=== PATIENT | female | born 1985 | race Caucasian/White ===

== ENCOUNTER 2017-03-02 18:14 | Emergency (ER) | payer OTHER ==
[~2017-03-02] VITALS: Ht 162.6 cm; Wt 68.2 kg
[~2017-03-02 18:14] MED LIST: CELE20TA AD; CELE40TA PO; FURO20TA2 PO; IBUP200C10 PO; LORA2TA PO; MELO15TA3 PO; MOBI15TA PO; TRAZ100T2 PO; TYLE167L PO; VENL37TA PO; XANA1TAB2 PO
[2017-03-02] MEDS ORDERED: METH5TA PO (18:25)
[2017-03-02 19:01] VITALS: BP 109/54
[2017-03-02] MEDS ORDERED: NS 1,000 ML IV SCH (19:18)
== END 2017-03-02 19:41 | disposition left against medical advice (07) ==
LOC: M ED 18:14
DX: R53.83 Other fatigue (principal); Z86.19 Personal history of other infectious and parasitic diseases; F17.200 Nicotine dependence, unspecified, uncomplicated; Z53.21 Procedure and treatment not carried out due to patient leaving prior to being seen by health care provider; Z79.891 Long term (current) use of opiate analgesic; Z88.1 Allergy status to other antibiotic agents; Z88.5 Allergy status to narcotic agent